=== PATIENT | male | born 1960 | race Caucasian/White ===

== ENCOUNTER 2019-11-03 05:40 | Day surgery (SDC) | payer OTHER ==
[2019-11-03] MEDS ORDERED: DEXAMETHASONE INJ 10 MG/ML VIAL ONE (07:00)
[2019-11-03] MEDS ORDERED: raNITIdine HCL INJ 25 MG/ML VIAL ONE (07:00)
[2019-11-03] MEDS ORDERED: ONDANSETRON INJ 4 MG/2 ML VIAL ONE (07:00)
[2019-11-03] MEDS ORDERED: MAGNESIUM SULFATE INJ 1 GM/2 ML VIAL ONE (07:00)
[2019-11-03] MEDS ORDERED: LIDOCAINE 1% 10 ML VIAL INJ ONE (07:00)
[2019-11-03] MEDS ORDERED: KETOROLAC TROMETHAMINE INJ 30 MG/ML VIAL ONE (07:00)
[2019-11-03] MEDS ORDERED: PROPOFOL 200 MG/20 ML VIAL IV ONE (07:00)
[2019-11-03] MEDS ORDERED: LACTATED RINGERS 1,000 ML ONE (11:10)
[2019-11-03] MEDS ORDERED: MIDAZOLAM INJ 2 MG/2 ML VIAL ONE (11:23)
[2019-11-03] MEDS ORDERED: KETAMINE HCL 100 MG/ML VIAL ONE (11:23)
[2019-11-03] MEDS ORDERED: fentaNYL CITRATE INJ 50 MCG/ML AMP ONE (11:23)
[2019-11-03] MEDS ORDERED: ROCURONIUM BROMIDE 10 MG/ML VIAL ONE (11:23)
[2019-11-03] MEDS ORDERED: BUPIVACAINE 0.5% W/EPI 30 ML VIAL INJ ONE ×2 (11:29→11:38)
[2019-11-03] MEDS ORDERED: IOPROMIDE INJ 300 MG/ML 50 ML INJ ONE (11:38)
[2019-11-03] MEDS ORDERED: HYDROmorphone HCL INJ 2 MG/ML VIAL ONE (12:11)
[2019-11-03] MEDS ORDERED: SUGAMMADEX SODIUM 200 MG/2 ML VIAL IV ONE (12:20)
[2019-11-03] MEDS ORDERED: PROMETHAZINE HCL INJ 25 MG/ML VIAL ONE (13:08)
[2019-11-03] MEDS ORDERED: SODIUM CHL 0.9% 50ML MIN-BAG+ 50 ML IVPB ONE (13:08)
[2019-11-03] MEDS: fentaNYL CITRATE INJ 50 MCG/ML AMP ONE ×4 (13:15→13:45)
--- NOTE | 2019-11-03 13:15 | OP ---
DATE OF PROCEDURE: 11/03/19 PREOPERATIVE DIAGNOSIS: 1. Symptomatic cholelithiasis. POSTOPERATIVE DIAGNOSIS: 1. Symptomatic cholelithiasis. PROCEDURE: 1. Laparoscopic cholecystectomy. SURGEON: Lm Saravia MD. ANESTHESIA: General and local. FINDINGS: Normal anatomy. COMPLICATIONS: None. ESTIMATED BLOOD LOSS: Minimal. SPECIMEN: Gallbladder. CONDITION: Stable. PLAN: Discharge. INDICATION: As stated. PROCEDURE: General anesthesia was indued. The patient was prepped and draped in sterile fashion. Marcaine 0.5% with epinephrine was used at all incision sites. While maintaining upward traction, a srikanth was made near the base of the umbilicus. Veress needle was introduced. There was free flow of fluid into the peritoneal cavity which was insufflated to an appropriate level with CO2 gas. The 5 mm trocar was placed followed by the camera. There was no evidence of bleeding or bowel injury. The patient was positioned and subxiphoid and lateral ports were placed.The gallbladder fundus was readily identified, grasped and retracted superiorly and laterally. The infundibulum was grasped. The infundibular structures were dissected free until the duct and small artery were identified. Both were triply ligated. There was another small vessel going into the gallbladder wall a little laterally. This was triply ligated and did not dive back into the liver. The gallbladder was then dissected off the fossa in toto and removed. The area was irrigated. Aspirate was clear. We identified a small oozing vessel near the base on the gallbladder fossa. A clip was placed and easily controlled that. At this point, everything was dry and under low pressure it remained hemostatic. Aspirate was clear. The subxiphoid fascia was then closed with 0 Vicryl using the suture passer. It was airtight and non-bleeding. The remaining trocars were removed. There was no bleeding from the trocar sites. The wounds were closed with Monocryl. Dressings were applied. The patient was awakened and taken to Recovery in stable condition to be discharged. #[id number] cc: DO JANET Galdamez
[2019-11-10 02:55] VITALS: BP 137/88; TEMP 97.9; O2SAT 93
== END 2019-11-03 15:35 | disposition home or self-care (01) ==
LOC: AMB 05:40
PROVIDERS: ATTEND Surgery
DX: K80.10 Calculus of gallbladder with chronic cholecystitis without obstruction (principal); I10 Essential (primary) hypertension; Z79.82 Long term (current) use of aspirin; Z79.899 Other long term (current) drug therapy
CPT/HCPCS: 00790; 47562; J1100; J1170; J1885; J2250; J2405; J2550; J2780; J3010; J3475; J3490; J7050; J7120